=== PATIENT | female | born 1945 | race African-American/Black ===

== ENCOUNTER 2018-04-18 04:52 | Inpatient (IN) | payer MEDICARE, OTHER ==
[2018-04-18 05:42] VITALS: BP 144/80
[2018-04-18 07:56] LABS: CHOLESTEROL 143 mg/dL (<200); HDL -HIGH DENSITY LIPOPROTEIN 35 mg/dL (23-92); TRIGLYCERIDES 91 mg/dL (<150)
[2018-04-18] MEDS: Multivitamin Tab PO SCH (08:27)
--- NOTE | 2018-04-18 16:05 | Psychiatric Evaluation ---
DATE OF SERVICE: 04/18/2018 IDENTIFYING INFORMATION: The patient is an 85-year-old female. CHIEF COMPLAINT: No answer. HISTORY OF PRESENT ILLNESS: The patient was referred from [facility] because of decreased appetite, decreased sleep, depression, unable to make safe plan for self-care with a history of bipolar disorder, dementia. The patient was a poor historian, unable to tell me the date, where she is, why she is here, she reports a history of hallucination in the past, but none now, but she admits to feeling depressed, admits to decreased appetite, decreased sleep, but she was a very poor historian. Then, she said she used to drink alcohol, but not recently. PAST PSYCHIATRIC HISTORY: Dementia, bipolar disorder. The patient recently more aggressive, irritable, depressed. 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 MENTAL STATUS EXAMINATION: The patient is appropriately dressed, not well groomed. Her affect is flat. Thoughts are concrete fragmented, speech is coherent, but very slow to respond. She admits to feeling depressed with decreased appetite, decreased sleep. She denies any current auditory or visual or paranoia. Denies any intent to harm anyone. 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 So the ages of her children so long and short term memory is poor. Her insight and judgment is impaired. IMPRESSION: ____ psychosis or bipolar disorder. DIAGNOSIS: Deferred to medical doctor. INITIAL TREATMENT PLAN: The patient will be started on Remeron. We will do group therapy, milieu therapy, and individual therapy. ESTIMATED LENGTH OF STAY: 3-7 days. DISCHARGE CRITERIA: Decreasing depression, no longer suicidal. JOB# [id number]
--- NOTE | 2018-04-18 23:03 | History & Physical ---
ADMIT DATE: HISTORY OF PRESENT ILLNESS: The patient is a 72-year-old female with long history of dementia, degenerative joint disease, hypertension, admitted to [facility] under Dr. Lovell's service for the treatment. The patient is a poor historian. No chest pain, no shortness of breath, no fever, no chills. PAST MEDICAL HISTORY: Significant for degenerative joint disease, hypertension, dementia. PAST SURGICAL HISTORY: No recent surgery. ALLERGIES: TETRACYCLINE. SOCIAL HISTORY: No smoking, no alcohol, no drug. FAMILY HISTORY: Noncontributory. MEDICATIONS: Follow admission reconciliation. REVIEW OF SYSTEMS: IMMUNO SYSTEM: No history of chronic immune disorder. CARDIOVASCULAR SYSTEM: No coronary artery disease. ENDOCRINE SYSTEM: No diabetes or thyroid problem. GASTROINTESTINAL SYSTEM: No upper or lower gastrointestinal bleed. NEUROLOGICAL SYSTEM: Seizure disorder. SKELETOMUSCULAR SYSTEM: No muscular dystrophy. HEMATOLOGIC: No bleeding tendencies. RESPIRATORY SYSTEM: No asthma. : No dysuria or hematuria. PHYSICAL EXAMINATION: GENERAL: The patient is awake, alert, not coherent. VITAL SIGNS: Temperature 98.6, heart rate 70, blood pressure 145/72. HEENT: Normocephalic. Pupils reacting equal to light and accommodation. Sclerae clear. NECK: Supple. Negative for lymphadenopathy, JVD, or bruit. CHEST: Entry of air bilaterally normal. No rales, rhonchi, or wheezing. HEART: S1, S2 normal. No gallop rhythm. ABDOMEN: Soft, bowel sounds positive. EXTREMITIES: No edema. NEUROLOGIC: She is awake, alert, not coherent. She is moving upper and lower extremities. LABORATORY DATA: Cholesterol 143. ASSESSMENT: 1. Hypertension. 2. Degenerative joint disease. 3. Dementia. 4. Psychosis. PLAN: The patient admitted in the hospital under Dr. Lovell's service. Medical problem addressed during hospitalization is psychosis. Medical problems addressed after discharge are hypertension, degenerative joint disease. The patient is medically stable for activity. The patient will be started on Norvasc 5 mg once a day and we will order a CBC, CMP for tomorrow with TSH. The patient is cleared for activity. Thank you, Dr. Lovell, for asking me to see your patient. The patient is full code. JOB# [id number]
[2018-04-19 07:09] LABS: % BASOPHILS 0.8 % (0.0-2.0); % EOSINOPHILS 1.3 % (0.0-5.0); % LYMPHOCYTES 16.2 % (20.0-50.0); % MONOCYTES 11.8 % (2.0-10.0); % NEUTROPHILS 69.9 % (40.0-80.0); BASOPHILE ABSOLUTE 0.1 Th/cumm (0-0.2); EOSINOPHILE ABSOLUTE 0.1 Th/cmm (0.1-0.4); HEMATOCRIT 43.6 % (41.0-60); HEMOGLOBIN 14.5 gm/dL (12-16); LYMPHOCYTE ABSOLUTE 1.5 Th/cmm (1.5-3.0); MEAN CELL VOLUME 85.3 fl (81-100); MEAN CORPUSCULAR HEMOGLOBIN 28.3 pg (27.0-31.0); MEAN CORPUSCULAR HGB CONC 33.2 pg (28.0-36.0); MEAN PLATELET VOLUME 8.1 fl; MONOCYTE ABSOLUTE 1.1 Th/cmm (0.3-1.0); NEUTROPHILE ABSOLUTE 6.6 Th/cmm (1.8-8.0); PLATELET COUNT 211 Th/cmm (150-400); RED BLOOD COUNT 5.11 Mil/cmm (3.80-5.20); RED CELL DISTRIBUTION WIDTH 13.4 % (11.5-20.0); WHITE BLOOD COUNT 9.4 Th/cmm (4.8-10.8)
[2018-04-19 07:31] LABS: ALB/GLOB RATIO 1.2 (1.0-1.8); ALBUMIN 3.8 gm/dL (3.7-5.3); ALKALINE PHOSPHATASE 47 U/L (34-104); ANION GAP 16.8 (7.0-16.0); BILIRUBIN,TOTAL 0.5 mg/dL (0.3-1.0); BUN - UREA NITROGEN 14 mg/dL (7-25); CALCIUM SERUM 9.8 mg/dL (8.6-10.3); CHLORIDE 103 mEq/L (98-107); CREATININE - SERUM 0.7 mg/dL (0.6-1.2); GLUCOSE 91 mg/dL (70-105); POTASSIUM SERUM 3.8 mEq/L (3.5-5.1); SGOT 19 U/L (13-39); SGPT/ALT 23 U/L (7-52); SODIUM SERUM 139 mEq/L (136-145); TOTAL PROTEIN,SERUM 7.1 gm/dL (6.0-8.3)
[2018-04-19] MEDS: Multivitamin Tab PO SCH (12:02)
--- NOTE | 2018-04-19 19:51 | Internal Medicine Prog Note ---
Internal Medicine Subjective - Subjective Service Date: 04/19/18 Patient seen and examined:: with staff Patient is:: awake, verbal, in bed, confused Per staff patient has:: no adverse event Internal Medicine Objective - Results Result Diagrams: 04/19/18 06:00 04/19/18 06:00 Recent Labs: Laboratory Last Values WBC 9.4 Th/cmm (4.8-10.8) 04/19/18 06:00 RBC 5.11 Mil/cmm (3.80-5.20) 04/19/18 06:00 Hgb 14.5 gm/dL (12-16) 04/19/18 06:00 Hct 43.6 % (41.0-60) 04/19/18 06:00 MCV 85.3 fl (81-100) 04/19/18 06:00 MCH 28.3 pg (27.0-31.0) 04/19/18 06:00 MCHC Differential 33.2 pg (28.0-36.0) 04/19/18 06:00 RDW 13.4 % (11.5-20.0) 04/19/18 06:00 Plt Count 211 Th/cmm (150-400) 04/19/18 06:00 MPV 8.1 fl 04/19/18 06:00 Neutrophils % 69.9 % (40.0-80.0) 04/19/18 06:00 Lymphocytes % 16.2 % (20.0-50.0) L 04/19/18 06:00 Monocytes % 11.8 % (2.0-10.0) H 04/19/18 06:00 Eosinophils % 1.3 % (0.0-5.0) 04/19/18 06:00 Basophils % 0.8 % (0.0-2.0) 04/19/18 06:00 Sodium 139 mEq/L (136-145) 04/19/18 06:00 Potassium 3.8 mEq/L (3.5-5.1) 04/19/18 06:00 Chloride 103 mEq/L (98-107) 04/19/18 06:00 Carbon Dioxide 23.0 mEq/L (21.0-31.0) 04/19/18 06:00 Anion Gap 16.8 (7.0-16.0) H 04/19/18 06:00 BUN 14 mg/dL (7-25) 04/19/18 06:00 Creatinine 0.7 mg/dL (0.6-1.2) 04/19/18 06:00 Est GFR ( Amer) TNP 04/19/18 06:00 Est GFR (Non-Af Amer) TNP 04/19/18 06:00 BUN/Creatinine Ratio 20.0 04/19/18 06:00 Glucose 91 mg/dL (70-105) 04/19/18 06:00 Calcium 9.8 mg/dL (8.6-10.3) 04/19/18 06:00 Total Bilirubin 0.5 mg/dL (0.3-1.0) 04/19/18 06:00 AST 19 U/L (13-39) 04/19/18 06:00 ALT 23 U/L (7-52) 04/19/18 06:00 Alkaline Phosphatase 47 U/L (34-104) 04/19/18 06:00 Total Protein 7.1 gm/dL (6.0-8.3) 04/19/18 06:00 Albumin 3.8 gm/dL (3.7-5.3) 04/19/18 06:00 Globulin 3.3 gm/dL 04/19/18 06:00 Albumin/Globulin Ratio 1.2 (1.0-1.8) 04/19/18 06:00 Triglycerides 91 mg/dL (<150) 04/18/18 07:07 Cholesterol 143 mg/dL (<200) 04/18/18 07:07 LDL Cholesterol Direct 90 mg/dL (75-193) 04/18/18 07:07 HDL Cholesterol 35 mg/dL (23-92) 04/18/18 07:07 TSH 3.28 uIU/ml (0.34-5.60) 04/19/18 06:00 - Physical Exam Vitals and I&O: Vital Signs Temp 98.4 F 04/19/18 18:26 Pulse 92 04/19/18 18:26 Resp 20 04/19/18 18:26 BP 140/86 04/19/18 18:26 Pulse Ox 96 04/19/18 18:26 Intake & Output 04/19/18 04/19/18 04/20/18 06:59 18:59 06:59 Intake Total 240 Balance 240 Intake: Oral 240 Other: # Voids 2 Active Medications: Current Medications Acetaminophen (Tylenol) 650 mg PO Q4HR PRN PRN Reason: Mild Pain / Temp above 100 Stop: 06/17/18 06:14 Amlodipine Besylate (Norvasc) 5 mg PO DAILY [facility] Stop: 06/18/18 08:59 Last Admin: 04/19/18 12:01 Dose: Not Given Donepezil HCl (Aricept) 5 mg PO HS [facility] Stop: 06/18/18 20:59 Lorazepam (Ativan) 0.5 mg PO Q4HR PRN; Protocol PRN Reason: Anxiety Stop: 05/18/18 06:14 Mirtazapine (Remeron) 7.5 mg PO HS [facility]; Protocol Stop: 06/17/18 20:59 Last Admin: 04/18/18 21:00 Dose: 7.5 mg Multivitamins/Vitamin C (Theragran) 1 tab PO DAILY [facility] Stop: 06/17/18 08:59 Last Admin: 04/19/18 12:02 Dose: Not Given General: demented HEENT: NC/AT, PERRLA, EOMI, anicteric sclerae, throat clear Neck: Supple, No JVD, No thyromegaly, +2 carotid pulse wo bruit, No LAD Lungs: CTAB Cardiovascular: RRR, Normal S1, Normal S2, without murmur Abdomen: soft, non-tender, non-distended Extremities: clear Neurological: no change Internal Medicine Assmt/Plan - Assessment Assessment: 1.HTN. 2.DJD. 3.DEMENTIA. 4.PSYCHOSIS. - Plan Plan: CONTINUE ON CURRENT MEDICATION AND DIET.
--- NOTE | 2018-04-20 00:03 | Progress Notes ---
DATE: 04/19/2018 Case was discussed with staff of the patient, reviewed records. The patient has been not able to express herself. She refused to eat some of her meals according to the staff. I did add Remeron for her yesterday. She is demented, confused, unable to make safe plan for self-care. I will be adding Aricept to her medication to help with her poor memory and so far no side effects with the medication, no sedation, no nausea and we will continue to work with the patient in group therapy, milieu therapy, adjust medication as needed. JOB# [id number]
[2018-04-20] MEDS: Multivitamin Tab PO SCH (11:38)
--- NOTE | 2018-04-20 20:30 | Internal Medicine Prog Note ---
Internal Medicine Subjective - Subjective Service Date: 04/20/18 Patient seen and examined:: without staff Patient is:: awake, verbal, in bed, confused Per staff patient has:: no adverse event Internal Medicine Objective - Results Result Diagrams: 04/19/18 06:00 04/19/18 06:00 Recent Labs: Laboratory Last Values WBC 9.4 Th/cmm (4.8-10.8) 04/19/18 06:00 RBC 5.11 Mil/cmm (3.80-5.20) 04/19/18 06:00 Hgb 14.5 gm/dL (12-16) 04/19/18 06:00 Hct 43.6 % (41.0-60) 04/19/18 06:00 MCV 85.3 fl (81-100) 04/19/18 06:00 MCH 28.3 pg (27.0-31.0) 04/19/18 06:00 MCHC Differential 33.2 pg (28.0-36.0) 04/19/18 06:00 RDW 13.4 % (11.5-20.0) 04/19/18 06:00 Plt Count 211 Th/cmm (150-400) 04/19/18 06:00 MPV 8.1 fl 04/19/18 06:00 Neutrophils % 69.9 % (40.0-80.0) 04/19/18 06:00 Lymphocytes % 16.2 % (20.0-50.0) L 04/19/18 06:00 Monocytes % 11.8 % (2.0-10.0) H 04/19/18 06:00 Eosinophils % 1.3 % (0.0-5.0) 04/19/18 06:00 Basophils % 0.8 % (0.0-2.0) 04/19/18 06:00 Sodium 139 mEq/L (136-145) 04/19/18 06:00 Potassium 3.8 mEq/L (3.5-5.1) 04/19/18 06:00 Chloride 103 mEq/L (98-107) 04/19/18 06:00 Carbon Dioxide 23.0 mEq/L (21.0-31.0) 04/19/18 06:00 Anion Gap 16.8 (7.0-16.0) H 04/19/18 06:00 BUN 14 mg/dL (7-25) 04/19/18 06:00 Creatinine 0.7 mg/dL (0.6-1.2) 04/19/18 06:00 Est GFR ( Amer) TNP 04/19/18 06:00 Est GFR (Non-Af Amer) TNP 04/19/18 06:00 BUN/Creatinine Ratio 20.0 04/19/18 06:00 Glucose 91 mg/dL (70-105) 04/19/18 06:00 Calcium 9.8 mg/dL (8.6-10.3) 04/19/18 06:00 Total Bilirubin 0.5 mg/dL (0.3-1.0) 04/19/18 06:00 AST 19 U/L (13-39) 04/19/18 06:00 ALT 23 U/L (7-52) 04/19/18 06:00 Alkaline Phosphatase 47 U/L (34-104) 04/19/18 06:00 Total Protein 7.1 gm/dL (6.0-8.3) 04/19/18 06:00 Albumin 3.8 gm/dL (3.7-5.3) 04/19/18 06:00 Globulin 3.3 gm/dL 04/19/18 06:00 Albumin/Globulin Ratio 1.2 (1.0-1.8) 04/19/18 06:00 Triglycerides 91 mg/dL (<150) 04/18/18 07:07 Cholesterol 143 mg/dL (<200) 04/18/18 07:07 LDL Cholesterol Direct 90 mg/dL (75-193) 04/18/18 07:07 HDL Cholesterol 35 mg/dL (23-92) 04/18/18 07:07 TSH 3.28 uIU/ml (0.34-5.60) 04/19/18 06:00 - Physical Exam Vitals and I&O: Vital Signs Temp 98.1 F 04/20/18 20:00 Pulse 96 04/20/18 20:00 Resp 20 04/20/18 20:00 BP 118/75 04/20/18 20:00 Pulse Ox 95 04/20/18 20:00 Active Medications: Current Medications Acetaminophen (Tylenol) 650 mg PO Q4HR PRN PRN Reason: Mild Pain / Temp above 100 Stop: 06/17/18 06:14 Amlodipine Besylate (Norvasc) 5 mg PO DAILY [facility] Stop: 06/18/18 08:59 Last Admin: 04/20/18 11:38 Dose: Not Given Azithromycin (Zithromax) 250 mg PO DAILY [facility] Stop: 06/19/18 14:44 Last Admin: 04/20/18 17:11 Dose: Not Given Donepezil HCl (Aricept) 10 mg PO HS [facility] Stop: 06/19/18 20:59 Lorazepam (Ativan) 0.5 mg PO Q4HR PRN; Protocol PRN Reason: Anxiety Stop: 05/18/18 06:14 Mirtazapine (Remeron) 7.5 mg PO HS [facility]; Protocol Stop: 06/17/18 20:59 Last Admin: 04/19/18 20:48 Dose: Not Given Multivitamins/Vitamin C (Theragran) 1 tab PO DAILY [facility] Stop: 06/17/18 08:59 Last Admin: 04/20/18 11:38 Dose: Not Given Olanzapine (Zyprexa Zydis) 5 mg PO HS [facility]; Protocol Stop: 06/19/18 20:59 General: demented HEENT: NC/AT, PERRLA, EOMI, anicteric sclerae, throat clear, other (SHE HAS WHIT THRUSH ON TOUNG) Neck: Supple, No JVD, No thyromegaly, +2 carotid pulse wo bruit, No LAD Lungs: CTAB Cardiovascular: RRR, Normal S1, Normal S2, without murmur Abdomen: soft, non-tender, non-distended Extremities: clear Neurological: no change Internal Medicine Assmt/Plan - Assessment Assessment: 1.HTN. 2.DJD. 3.DEMENTIA. 4.PSYCHOSIS. 5.MOUTH THRUSH - Plan Plan: CONTINUE ON CURRENT MEDICATION AND DIET.NYSTATIN SUSP TID.
[2018-04-20] MEDS ORDERED: OLANZapine 5 mg Oral Disintegrating Tab PO SCH (21:00)
--- NOTE | 2018-04-20 23:45 | Progress Notes ---
DATE: 04/20/2018 Case was discussed with staff of the patient. The patient today and yesterday evening for the first time she refused to eat, refusing medication. She also complained of sore throat. So we asked the medical doctor to come and evaluate her to give her the throat medication. I talked to her daughter, Ms. Dean at [phone] and left a message to her other daughter, Tena Lund at [phone], she did not answer me. So, Ms. Dean tell me that the mother suffered with bipolar disorder, dementia that she was at [facility] recently that she stabilized on the medication. She has a psychiatrist in [place], but she was unable to give me his number and exact spelling of his name; however, they are concerned about their mother being in a facility at this time of the year, where everybody is sick. They do want her to get contagious. I told her we need to stabilize her medically first and if she is medically well, we can transfer to a rehab center to continue her treatment there and she was concerned that she will be seeing different doctors. I told her we will try to keep her with the same doctors that were treating her and Dr. Lundberg and me and at this point, I tried to talk to the patient about why she is not taking her medication and she did not give me any answer. I will be initiating her back on Zyprexa the liquid form and Remeron. We will continue with the Remeron and we will get the medical doctor to evaluate and make decision on what if she has any problem with her throat and then we will try to see if we could send her to a rehab center where we could continue her treatment there ____ more attention and we will continue to work with the patient in group therapy, milieu therapy, and adjust the medication as needed. JOB# [id number]
[2018-04-21] MEDS ORDERED: OLANZapine 5 mg Oral Disintegrating Tab PO ONE (13:00)
[2018-04-21] MEDS: Multivitamin Tab PO SCH (15:49)
--- NOTE | 2018-04-21 18:08 | Progress Notes ---
DATE: 04/21/2018 Case was discussed with staff of the patient, reviewed records. I and Dr. German saw the patient yesterday because of the problem with her throat and she did manage to gargle with nystatin. The patient continues to be confused, she did eat a little bit yesterday. Today, she is refusing to do anything. Continues to have poor insight, unpredictable, impulsive, needing redirection. The patient was found to have mouth thrush and she was given nystatin suspension, to be given 3 times a day. The patient continues to refuse medications. She would not tell me why she is not taking her medication. Continues to have poor insight, unpredictable, impulsive; however, she is not acting anyway dangerous. She could be as well managed in a nursing facility where probably she will get more closer attention. As I talked to the rehabilitation center, they told me they could take care of her; however, we will clear her medically first and I changed her Zyprexa to Zydis, so she will be easy to take and so far no side effects. She is not taking the medications. She did take it the first day. I am not sure if it is because of sore throat. She is also refusing to eat. I also talked to her family to see if they could prompt her to take her medication and her lab work showed CBC with low lymphocytes, high monocyte. The rest within normal range. Chemistry panel within normal range. Lipid panel within normal range. TSH within normal range. We will continue to work with the patient in group therapy, milieu therapy, and adjust medications as needed. Actually I am going to come back and talk with this patient and with the staff as I initiated a hold and initiated Riese on her; however, I went and talked to her myself and there was food in front of her that she did not pickup. The patient is demented, confused, does not really cannot take care of herself, so I initiated feeding her the bone soup and she was able to eat it, so I called the nurse who is Zaria, the charge nurse. She called one of the electronic train control technician to help the patient to eat. She was able to eat. They were able to give her, her medications, so I realized and discussed with staff that the patient needs a special care. She is not eating, she may refuse to eat or take her medication because she was not feeling well in her throat and that will need to prompt her to get the appropriate food for her and make sure someone especially give her little bit more attention. It seemed to me like from dealing with her like she needed special attention more so than because prompting her do not going to do it, she had to be helped personally. We managed to feed her today, so she took the medication and at this point, we can do to the Riese, but however, I talked to the people at the rehab center and they have feeders over there, they will be feeding the patient without waiting for the patient to grab her food and eat it and at this point, I am not sure that keeping her any longer in the hospital be of much benefit if we have a place that would give her special attention. I also talked to her daughter today and I explained to her that she will need special attention and hopefully the family would help with that as they are more familiar with her and she will feel ____ with them and at this point, we will continue outpatient group therapy, milieu therapy, and adjust medications as needed. JOB# [id number] [email or web address]
--- NOTE | 2018-04-21 20:51 | Internal Medicine Prog Note ---
Internal Medicine Subjective - Subjective Service Date: 04/21/18 Patient seen and examined:: with staff Patient is:: awake, verbal, in bed, confused Per staff patient has:: no adverse event Internal Medicine Objective - Results Result Diagrams: 04/19/18 06:00 04/19/18 06:00 Recent Labs: Laboratory Last Values WBC 9.4 Th/cmm (4.8-10.8) 04/19/18 06:00 RBC 5.11 Mil/cmm (3.80-5.20) 04/19/18 06:00 Hgb 14.5 gm/dL (12-16) 04/19/18 06:00 Hct 43.6 % (41.0-60) 04/19/18 06:00 MCV 85.3 fl (81-100) 04/19/18 06:00 MCH 28.3 pg (27.0-31.0) 04/19/18 06:00 MCHC Differential 33.2 pg (28.0-36.0) 04/19/18 06:00 RDW 13.4 % (11.5-20.0) 04/19/18 06:00 Plt Count 211 Th/cmm (150-400) 04/19/18 06:00 MPV 8.1 fl 04/19/18 06:00 Neutrophils % 69.9 % (40.0-80.0) 04/19/18 06:00 Lymphocytes % 16.2 % (20.0-50.0) L 04/19/18 06:00 Monocytes % 11.8 % (2.0-10.0) H 04/19/18 06:00 Eosinophils % 1.3 % (0.0-5.0) 04/19/18 06:00 Basophils % 0.8 % (0.0-2.0) 04/19/18 06:00 Sodium 139 mEq/L (136-145) 04/19/18 06:00 Potassium 3.8 mEq/L (3.5-5.1) 04/19/18 06:00 Chloride 103 mEq/L (98-107) 04/19/18 06:00 Carbon Dioxide 23.0 mEq/L (21.0-31.0) 04/19/18 06:00 Anion Gap 16.8 (7.0-16.0) H 04/19/18 06:00 BUN 14 mg/dL (7-25) 04/19/18 06:00 Creatinine 0.7 mg/dL (0.6-1.2) 04/19/18 06:00 Est GFR ( Amer) TNP 04/19/18 06:00 Est GFR (Non-Af Amer) TNP 04/19/18 06:00 BUN/Creatinine Ratio 20.0 04/19/18 06:00 Glucose 91 mg/dL (70-105) 04/19/18 06:00 Calcium 9.8 mg/dL (8.6-10.3) 04/19/18 06:00 Total Bilirubin 0.5 mg/dL (0.3-1.0) 04/19/18 06:00 AST 19 U/L (13-39) 04/19/18 06:00 ALT 23 U/L (7-52) 04/19/18 06:00 Alkaline Phosphatase 47 U/L (34-104) 04/19/18 06:00 Total Protein 7.1 gm/dL (6.0-8.3) 04/19/18 06:00 Albumin 3.8 gm/dL (3.7-5.3) 04/19/18 06:00 Globulin 3.3 gm/dL 04/19/18 06:00 Albumin/Globulin Ratio 1.2 (1.0-1.8) 04/19/18 06:00 Triglycerides 91 mg/dL (<150) 04/18/18 07:07 Cholesterol 143 mg/dL (<200) 04/18/18 07:07 LDL Cholesterol Direct 90 mg/dL (75-193) 04/18/18 07:07 HDL Cholesterol 35 mg/dL (23-92) 04/18/18 07:07 TSH 3.28 uIU/ml (0.34-5.60) 04/19/18 06:00 - Physical Exam Vitals and I&O: Vital Signs Temp 97.8 F 04/21/18 20:06 Pulse 90 04/21/18 20:06 Resp 19 04/21/18 20:06 BP 120/89 04/21/18 20:06 Pulse Ox 99 04/21/18 20:06 Intake & Output 04/21/18 04/21/18 04/22/18 06:59 18:59 06:59 Intake Total 800 240 Balance 800 240 Intake: Oral 800 240 Other: # Voids 0 2 # Bowel Movements 0 Active Medications: Current Medications Acetaminophen (Tylenol) 650 mg PO Q4HR PRN PRN Reason: Mild Pain / Temp above 100 Stop: 06/17/18 06:14 Amlodipine Besylate (Norvasc) 5 mg PO DAILY [facility] Stop: 06/18/18 08:59 Last Admin: 04/21/18 16:24 Dose: Not Given Azithromycin (Zithromax) 250 mg PO DAILY [facility] Stop: 06/19/18 14:44 Last Admin: 04/21/18 13:00 Dose: 250 mg Donepezil HCl (Aricept) 10 mg PO HS [facility] Stop: 06/19/18 20:59 Last Admin: 04/20/18 21:16 Dose: Not Given Lorazepam (Ativan) 0.5 mg PO Q4HR PRN; Protocol PRN Reason: Anxiety Stop: 05/18/18 06:14 Mirtazapine (Remeron) 7.5 mg PO HS [facility]; Protocol Stop: 06/17/18 20:59 Last Admin: 04/20/18 21:16 Dose: Not Given Multivitamins/Vitamin C (Theragran) 1 tab PO DAILY [facility] Stop: 06/17/18 08:59 Last Admin: 04/21/18 15:49 Dose: Not Given Nystatin (Nystatin) 100,000 units PO TID [facility] Stop: 06/19/18 20:59 Last Admin: 04/21/18 18:13 Dose: Not Given Olanzapine (Zyprexa Zydis) 5 mg PO HS [facility]; Protocol Stop: 06/19/18 20:59 Pantoprazole Sodium (Protonix) 40 mg PO DAILY [facility] Stop: 06/21/18 08:59 General: demented HEENT: NC/AT, PERRLA, EOMI, anicteric sclerae, throat clear, other (SHE HAS WHIT THRUSH ON TOUNG) Neck: Supple, No JVD, No thyromegaly, +2 carotid pulse wo bruit, No LAD Lungs: CTAB Cardiovascular: RRR, Normal S1, Normal S2, without murmur Abdomen: soft, non-tender, non-distended Extremities: clear Neurological: no change Internal Medicine Assmt/Plan - Assessment Assessment: 1.HTN. 2.DJD. 3.DEMENTIA. 4.PSYCHOSIS. 5.MOUTH THRUSH 6.RAYMOND - Plan Plan: CONTINUE ON CURRENT MEDICATION AND DIET.PROTONIX 40 MG PO DAILY.LOVENOX 40 MG SC DAILY. Nutritional Asmnt/Malnutr-PDOC - Dietary Evaluation Malnutrition Findings (Please click <Entered> for more info): Nutritional Asmnt/Malnutrition Start: 04/21/18 15: 51 Text: Status: Active Freq: Protocol: Document 04/21/18 15:52 RADHA (Rec[facility]21[facility]18 16[email or web address] Nutritional Asmnt/Malnutrition Patient General Information Nutritional Screening Moderate Risk Diagnosis psychosis NOS Pertinent Medical Hx/Surgical Hx DJD, HTn, dementia Subjective Information Pt seen sitting up in bed, [employer]ELOPER was assisting with meals. [employer] DEVELOPER reported pt had throat pain which decreased PO intake. Pt prefer soup. Offered Ensure, pt refused. per EMR, PO intake 0-10%. Current Diet Order/ Nutrition Support regular. Pertinent Medications theragran Pertinent Labs 04/19 nutrition related labs WNL Nutritional Hx/Data Height 1.7 m Height (Calculated Centimeters) 170.2 Current Weight (lbs) 84.368 kg Weight (Calculated Kilograms) 84.4 Weight (Calculated Grams) 54367.2 [place] Body Weight 135 Body Mass Index (BMI) 29.1 GI Symptoms GI Symptoms None Last BM none noted Skin Integrity/Comment: intact Current %PO Negligible < 25% Estimated Nutritional Goals BEE in Kcals: Using Current wt Calories/Kcals/Kg 23-27 Kcals Calculated 2243-5351 Protein: Using Current wt Protein g/k.8 Protein Calculated 68 Fluid: ml 1955-2295ml (1ml/kcal) Nutritional Problem 1. Problem Problem inadequate food intake Etiology sore throat Signs/Symptoms: PO intake 0-10% Malnutrition Related to Morbid Obesity Malnutrition related to morbid obesity No Intervention/Recommendation Comments 1. Continue with regular diet as ordered. Send soup with all lunch and dinner. 2. Monitor PO intake, wt, labs and skin integrity 3. F/U as moderate risk in 3-5 days, 04/24-04/26, PO check Expected Outcomes/Goals Expected Outcomes/Goals 1. PO intake to meet at least 75% of nutritional needs. 2. Wt stability, skin to remain intact, labs to approach WNL.
--- NOTE | 2018-04-22 01:33 | Progress Notes ---
DATE: 04/21/2018 ADDENDUM: The patient was found to have mouth thrush and she was given nystatin suspension, to be given 3 times a day. The patient continues to refuse medications. She would not tell me why she is not taking her medication. Continues to have poor insight, unpredictable, impulsive; however, she is not acting anyway dangerous. She could be as well managed in a nursing facility where probably she will get more closer attention. As I talked to the rehabilitation center, they told me they could take care of her; however, we will clear her medically first and I changed her Zyprexa to Zydis, so she will be easy to take and so far no side effects. She is not taking the medications. She did take it the first day. I am not sure if it is because of sore throat. She is also refusing to eat. I also talked to her family to see if they could prompt her to take her medication and her lab work showed CBC with low lymphocytes, high monocyte. The rest within normal range. Chemistry panel within normal range. Lipid panel within normal range. TSH within normal range. We will continue to work with the patient in group therapy, milieu therapy, and adjust medications as needed. JOB# [id number]
--- NOTE | 2018-04-22 06:35 | Progress Notes ---
DATE: 04/21/2018 ADDENDUM Actually I am going to come back and talk with this patient and with the staff as I initiated a hold and initiated Riese on her; however, I went and talked to her myself and there was food in front of her that she did not pickup. The patient is demented, confused, does not really cannot take care of herself, so I initiated feeding her the soup and she was able to eat it, so I called the nurse ms Bell, the charge nurse. She called one of the design engineering technician to help the patient to eat. She was able to eat. They were able to give her, her medications, so I realized and discussed with staff that the patient needs a special care. She is eating, she may refuse to eat or take her medication because she was not feeling well in her throat and that will need to prompt her to get the appropriate food for her and make sure someone especially give her little bit more attention. It seemed to me like from dealing with her like she needed special attention more so than because prompting her do not going to do it, she had to be helped personally. We managed to feed her today, so she took the medication and at this point, , but however, I talked to the people at the rehab center and they have feeders over there, they will be feeding the patient without waiting for the patient to grab her food and eat it and at this point, I am not sure that keeping her any longer in the hospital be of much benefit if we have a place that would give her special attention. I also talked to her daughter today and I explained to her that she will need special attention and hopefully the family would help with that as they are more familiar with her and she will feelsafe with them and at this point, we will continue outpatient group therapy, milieu therapy, and adjust medications as needed. JOB# [id number] JENN
[2018-04-22] MEDS ORDERED: Pantoprazole 40 mg EC Tab PO SCH (07:30)
[2018-04-22] MEDS ORDERED: Enoxaparin 40 mg/0.4 mL 0.4mL Syr SUBQ SCH (09:00)
[2018-04-22] MEDS: Multivitamin Tab PO SCH (09:13)
--- NOTE | 2018-04-22 13:18 | Discharge Summary ---
DATE OF DISCHARGE: 04/22/2018 IDENTIFYING INFORMATION: The patient is an 85-year-old female. CHIEF COMPLAINT: No answer. HISTORY OF PRESENT ILLNESS: The patient is referred from [place] because of decreased appetite, decreased sleep, depression, unable to make a safe plan for her self-care, with a history of bipolar disorder, dementia. The patient was a poor historian, unable to tell me the date, where she is, why she is here, with a history of hallucinations in the past but none now, but she admits to feeling depressed, admits to decreased appetite, decreased sleep. She is a very poor historian. She states she used to drink alcohol but not recently. PAST PSYCHIATRIC HISTORY: Dementia, bipolar disorder. The patient is easily more irritable, depressed, sometimes aggressive. COURSE IN THE HOSPITAL: The patient was continued with medication Zyprexa and I changed it to Zydis as the patient was not taking that; she did take it the first day, then she started refusing medication, found out that she had thrush in her throat and Dr. Lundberg ordered for her Nystatin which she took. The patient also continued with Aricept 10 mg at bedtime. She was given azithromycin 250 mg daily. Also added Remeron 7.5 mg at bedtime to help with her appetite. Actually I talked to her daughter, Dianne, and left messages twice to her other daughter, Sandy, and discussed the care with them. They are agreeable to the patient going to a rehab. Actually, I kept asking the staff to try to help her eat and apparently I do not know if they tried ____, but when I passed by her and she had a tray of food, I initiated feeding her myself and she started eating, we managed to give her the medication, that was yesterday. Today, the staff reports she took medication on her own, she seems to be in better mood. At this point, I discussed her care with the rehab center where she is going and I asked them if they are willing to give her special care and take care of her and have people to feed the patients that need feeding, and they are willing to do so, they are aware of her condition. I felt since the staff here seems to be overwhelmed and unable to give 1:1 attention to this patient, ____. At this point, it seemed like the patient just needs prompting. Probably, her poor appetite may have been because of her medical condition that was not being addressed and at this point it has been addressed, also we put her on pantoprazole that she used to be on, and she is on Nystatin and Lovenox. So, at this point, I feel the patient could be managed at rehab center with much better care than at this facility and the patient will be discharged to a lesser level of care. FINAL DIAGNOSES: 1. Bipolar disorder, depressed. Dementia. 2. Medical diagnoses: Thrush, Lilliam infection in the mouth, degenerative joint disease, hypertension. The patient will be going to [facility]. I will follow up with the patient there. I instructed the staff there to give her special attention, to call me on a daily basis so I can adjust her medication and take care of her as if she is here except that she will get the special attention that she is not getting here, and the patient will be discharged to a lesser level of care. At this point, the staff is trying to reach the family to get permission to send her to the nursing facility; we can do it without the permission. JOB# [id number]
== END 2018-04-22 15:00 | DRG 885 ==
LOC: GERO2 04:52
PROVIDERS: ADMIT Psychiatry & Neurology Psychiatry; ATTEND Psychiatry & Neurology Psychiatry
DX: F31.9 Bipolar disorder, unspecified (principal); B37.0 Candidal stomatitis; F03.90 Unspecified dementia, unspecified severity, without behavioral disturbance, psychotic disturbance, mood disturbance, and anxiety; M19.90 Unspecified osteoarthritis, unspecified site; I10 Essential (primary) hypertension; F29 Unspecified psychosis not due to a substance or known physiological condition; K21.9 Gastro-esophageal reflux disease without esophagitis
CPT/HCPCS: 36415-UA; 80053-TC; 80061-TC; 83036-90; 84443-TC; 85025-TC; J1650; Z7610